=== PATIENT | female | born 1975 | race American Indian/Alaskan Native ===

== ENCOUNTER 2017-03-11 02:50 | Outpatient (CLI) | payer MEDICAID ==
[2017-03-11] MEDS ORDERED: LACTATED RINGERS 1,000 ML IV ONE (03:28)
[2017-03-11] MEDS ORDERED: LACTATED RINGERS 1,000 ML ONE (03:30)
[2017-03-11 03:38] VITALS: BP 133/76
[2017-03-11] MEDS ORDERED: PEPCID IV ONE (04:37)
[2017-03-11] MEDS ORDERED: ZOFRAN IV ONE (04:37)
[2017-03-11] MEDS ORDERED: LACTATED RINGERS 1,000 ML IV SCH (05:00)
[2017-03-11 05:16] LABS: Hematocrit 22.6 % (30.3-42.9); Hemoglobin 6.9 gm/dl (10.1-14.3); Mean Corpuscular HGB Conc 30 % (30-34); Platelet Count 180 K/mm3 (140-440); Red Blood Count 3.85 M/mm3 (3.65-5.03)
[2017-03-11 05:18] LABS: Bilirubin,Urine NEG (Negative); Color,Urine Yellow (Yellow)
[2017-03-11 05:19] LABS: Blood,Urine SM (Negative); Nitrite,Urine NEG (Negative); Protein,Urine <15 mg/dL mg/dL (Negative); WBC,Urine < 1.0 /HPF (0.0-6.0)
[2017-03-11 05:23] LABS: Mean Corpuscular Hemoglobin 18 pg (28-32); Mean Corpuscular Volume 59 fl (79-97)
[2017-03-11 05:44] LABS: Alanine Aminotransferase 23 units/L (7-56); Albumin 3.1 g/dL (3.9-5); BUN/Creatinine Ratio 13; Blood Urea Nitrogen 4 mg/dL (7-17); Calcium 8.4 mg/dL (8.4-10.2); Hemolysis Index 0; Lipase 14 units/L (13-60)
== END 2017-03-11 06:18 | disposition home or self-care (01) ==
LOC: TRG 02:50
PROVIDERS: ATTEND Obstetrics & Gynecology
DX: O99.333 Smoking (tobacco) complicating pregnancy, third trimester (principal); O47.03 False labor before 37 completed weeks of gestation, third trimester; Z3A.33 33 weeks gestation of pregnancy
CPT/HCPCS: 36415; 59025; 80053; 81001; 82150; 83690; 85027; 96360; 96361; 96374; 96375; J2405; J7120

== ENCOUNTER 2017-03-30 20:10 | Outpatient (CLI) | payer MEDICAID ==
[2017-03-30] MEDS ORDERED: LACTATED RINGERS 500 ML IV ONE (20:28)
[2017-03-30 20:35] VITALS: BP 128/73
== END 2017-03-30 20:50 | disposition home or self-care (01) ==
LOC: TRG 20:10
PROVIDERS: ATTEND Obstetrics & Gynecology
DX: O09.523 Supervision of elderly multigravida, third trimester (principal); O99.333 Smoking (tobacco) complicating pregnancy, third trimester; O47.03 False labor before 37 completed weeks of gestation, third trimester; Z3A.36 36 weeks gestation of pregnancy
CPT/HCPCS: 59025